=== PATIENT | female | born 1975 | race Two or more races ===

== ENCOUNTER → 2017-08-05 13:34 | Outpatient (CLI) | payer BC, SELFPAY ==
[2017-08-05 15:48] LABS: Absolute Lymphocyte Count 1.61 X10^3/ul (0.83-4.51); Absolute Neutrophil Count 6.6 X10^3/uL (2.0-7.7); Basophil# 0.02 X10^3/uL; Basophil% 0.2 % (0-1); Eosinophil# 0.52 X10^3/uL; Eosinophils% 5.7 % (0-5); Hematocrit 43.9 % (37-47); Hemoglobin 13.9 g/dl (12.0-15.0); Lymphocyte # 1.61 X10^3/ul (4.0); Lymphocyte % 17.5 % (19-41); Mean Corp Hgb Conc 31.7 g/gl (32-36); Mean Corpuscular Hgb 29.6 pg (27.0-32.0); Mean Corpuscular Volume 93.4 fL (81-99); Monocyte# 0.46 X10^3/uL; Neutrophil # 6.55 X10^3/uL (2.7-7.7); Neutrophil % 71.4 % (47-70); Platelet Count 231 K/mm3 (150-450); RBC Distribution Width CV 13.6 % (11.6-14.6); RBC Distribution Width SD 46.8 fl (35.1-43.9); White Blood Count 9.2 K/mm3 (4.4-11.0)
[2017-08-05 15:56] LABS: POSITIVE COUNT NO; POSITIVE DIFFERENTIAL NO; POSITIVE MORPHOLOGY NO
[2017-08-05 16:13] LABS: AST(SGOT) 22 U/L (15-37); Alanine Aminotransfer ALT/SGPT 31 U/L (13-56); Albumin, Serum 3.9 g/dL (3.2-5.0); Alkaline Phosphatase 75 U/L (45-117); Anion Gap 7 (5-15); BUN 12 mg/dL (7-18); BUN/Creat Ratio 17.6 RATIO (10-20); Calcium,Total 9.2 mg/dL (8.5-10.1); Chloride 104 mmol/L (98-107); Creatinine, Serum 0.68 mg/dL (0.55-1.02); EST Glomerular Filtration Rate 102 mL/min (>60); Est Glom Filt Rate - Afr Amer 123 mL/min (>60); Ferritin 161 ng/mL (8-252); Globulin 3.8 g/dL (2.2-4.2); Glucose 86 mg/dL (74-106); Potassium 4.1 mmol/L (3.5-5.1); Protein, Total 7.7 g/dL (6.4-8.2); Sodium Level 141 mmol/L (136-145); Thyroid Stim Hormone (TSH) 0.82 uIU/mL (0.358-3.74)
[2017-08-07 16:11] LABS: Endomysial Antibody IgA Negative (Negative)
[2017-08-08 09:58] LABS: Deamidated Gliadin IgA 2 units (0-19); Deamidated Gliadin IgG 3 units (0-19); Immunoglobulin A 136 mg/dL (87-352); t-Transglutaminase IgA <2 U/mL (0-3)
== END ==
PROVIDERS: Family Provider Family Medicine; PCP Family Medicine; Visit Provider Family Medicine
DX: B94.8 Sequelae of other specified infectious and parasitic diseases (principal); K58.9 Irritable bowel syndrome, unspecified
CPT/HCPCS: 36415; 80053; 82728; 82784; 83516; 84443; 85025; 86255

== ENCOUNTER → 2018-01-30 09:19 | Outpatient (CLI) | payer BC, SELFPAY ==
--- NOTE | 2018-01-30 09:21 | RAD_ITS ---
STUDY: ESOPHAGRAM. REASON FOR EXAM: Female, 42 years old. Dyspepsia. Burning in the throat. Bad taste in mouth. Gas and bloating after eating. 12 pound weight loss in 6 months. RADIATION DOSAGE (If Supplied By Facility): CTDIvol = ( ) mGy, DLP = ( ) mGycm. Individualized dose optimization techniques were used for this CT.? FLUOROSCOPY TIME (if supplied): (0:35) minutes/seconds TECHNIQUE: Effervescing granules and barium meal ingested under fluoroscopic guidance. 3 images were provided for interpretation. COMPARISON: None. FINDINGS: The images of the esophagus demonstrate normal distensibility and caliber. There is no extraluminal projections of barium intraluminal filling defects. There is no mucosal abnormality. The proximal stomach appears grossly normal. RAD/Esophagus Only IMPRESSION: Limited esophagram without gross abnormality. Electronically Signed: Boby Yee DO at 19:38 EDT Tel [phone], Service support ,
== END ==
PROVIDERS: Family Provider Family Medicine; PCP Family Medicine; Visit Provider Family Medicine
DX: R10.13 Epigastric pain (principal)
CPT/HCPCS: 74220

== ENCOUNTER → 2018-03-06 08:35 | Outpatient (CLI) | payer BC, SELFPAY ==
--- NOTE | 2018-03-06 | IMM_PTH ---
PATIENT: VIOLET RODRIGUEZ LOC: [facility] U#:[id number] AGE/SX: 49/F ROOM: RE03/06/[address]: Dr. Bridger Riggins MD : 1975 BED: DIS: SPEC #: [id number] RECD: 03/10/18 10:53 STATUS: SOLOMON REQ #: [id number] DUSTIN: 03/06/18 00:[address]: Bridger Riggins DEPT: IMMUNOHISTOCHEMISTRY RECD BY: Frannie Espinoza ENTERED: 03/10/18 10:53 SP TYPE: IMMUNO OTHR DR: Dr. Antonio Barry MD Tissues: B - Stomach, NOS Procedures: H Pylori (initial) PHYSICIAN & INSTITUTION [place] [address] SPECIMEN INFORMATION: Tissue Source: B - Gastric biopsy Clinical Info: Dyspepsia, burning sensation of mouth, weight loss Specimen Number: [id number] CPT code: 35466 METHODOLOGY: Deparaffinized sections of prefer/formalin-fixed tissue or PAP/DQ stained slides are incubated with monoclonal/polyclonal antibodies/oligonucleotide probes. Localization is made via biotin free immunoperoxidase method. Appropriate controls are performed and reacted as expected. Results on target cell population are indicated in the following table: RESULTS: ANTIBODY / CLONE RESULT Block B H Pylori (polyclonal) negative These tests were developed and their performance characteristics determined by [facility]. They may not have been cleared or approved by the U.[place]. Food and Drug Administration. The FDA has determined that such clearance or approval is not necessary. INTERPRETATION: B. Gastric biopsy: Negative for Helicobacter pylori organisms. SJ:nori 03/11/18
--- NOTE | 2018-03-06 | EGD_PTH ---
PATIENT: VIOLET RODRIGUEZ LOC: [facility] U#:[id number] AGE/SX: 49/F ROOM: RE03/06/[address]: Dr. Bridger Riggins MD : 1975 BED: DIS: SPEC #: [id number] RECD: 03/06/18 15:35 STATUS: SOLOMON VALERIE #: [id number] DUSTIN: 03/06/18 00:[address]: Bridger Riggins DEPT: SURGICAL PATHOLOGY RECD BY: John Montgomery ENTERED: 03/09/18 13:36 SP TYPE: EGD BIOPSY OT DR: Dr. Antonio Barry MD [facility] Tissues: A - Duodenum, NOS B - Gastric mucous membrane Procedures: Surgery Specimen Level IV HEADER OPERATION: EGD with biopsies PRE-OP DIAGNOSIS: Dyspepsia, burning sensation of mouth, weight loss TISSUE SUBMITTED: A - Duodenal biopsies, rule out celiac and Whipple, B - Gastric biopsies, rule out gastritis MICROSCOPIC DIAGNOSIS A. Duodenal biopsy: Fragments of small intestinal mucosa, no pathologic diagnosis. B. Gastric biopsy: Mild gastritis. CRIS:nori 03/10/18 COMMENT B. The results of immunohistochemistry for Helicobacter pylori will be reported separately ([id number]). MICROSCOPIC DESCRIPTION Slides are reviewed. B. The specimen shows fragments of gastric mucosa with chronic inflammatory cell infiltrates in the lamina propria consisting of lymphocytes and plasma cells, consistent with mild chronic gastritis. GROSS DESCRIPTION A - Received in fixative is one container labeled with the patient's name and designated duodenal biopsy. The specimen consists of multiple irregular fragments of light ludwig soft tissue that in aggregate measure 1.5 x 0.2 x 0.1 cm. The specimen is totally submitted in one cassette. B - Received in fixative is one container labeled with the patient's name and designated gastric biopsy. The specimen consists of multiple irregular fragments of light ludwig soft tissue that in aggregate measure 1 x 0.6 x 0.1 cm. The specimen is totally submitted in one cassette. / CRIS:nori 03/09/18 TC:5 CPT: 06665 x2
== END ==
PROVIDERS: Family Provider Family Medicine; PCP Family Medicine; Referring Provider Internal Medicine Gastroenterology; Visit Provider Internal Medicine Gastroenterology
DX: R10.13 Epigastric pain (principal); R63.4 Abnormal weight loss; R19.8 Other specified symptoms and signs involving the digestive system and abdomen
CPT/HCPCS: 88305; 88342

== ENCOUNTER → 2018-05-20 09:59 | Outpatient (CLI) | payer BC, SELFPAY ==
[2018-05-20 12:31] LABS: Absolute Neutrophil Count 3.3 X10^3/uL (2.0-7.7); Basophil# 0.03 X10^3/uL; Basophil% 0.5 % (0-1); Eosinophil# 0.58 X10^3/uL; Eosinophils% 10.4 % (0-5); Hematocrit 42.2 % (37-47); Hemoglobin 13.8 g/dl (12.0-15.0); Lymphocyte % 25.1 % (19-41); Mean Corp Hgb Conc 32.7 g/gl (32-36); Mean Corpuscular Hgb 30.6 pg (27.0-32.0); Mean Corpuscular Volume 93.6 fL (81-99); Mean Platelet Vol. 11.6 fl (6.2-12.0); Monocyte# 0.24 X10^3/uL; Monocyte% 4.3 % (0-10); Neutrophil # 3.32 X10^3/uL (2.7-7.7); Neutrophil % 59.5 % (47-70); Platelet Count 182 K/mm3 (150-450); RBC Distribution Width CV 13.8 % (11.6-14.6); RBC Distribution Width SD 45.7 fl (35.1-43.9); Red Blood Count 4.51 M/mm3 (4.2-5.4); White Blood Count 5.6 K/mm3 (4.4-11.0)
[2018-05-20 12:32] LABS: POSITIVE COUNT NO; POSITIVE DIFFERENTIAL NO; POSITIVE MORPHOLOGY NO
[2018-05-20 12:47] LABS: ALB/GLOB Ratio 1.5 RATIO (0.9-2.4); AST(SGOT) 24 U/L (15-37); Alanine Aminotransfer ALT/SGPT 39 U/L (13-56); Albumin, Serum 4.2 g/dL (3.2-5.0); Alkaline Phosphatase 79 U/L (45-117); Anion Gap 7 (5-15); BUN 15 mg/dL (7-18); BUN/Creat Ratio 23.4 RATIO (10-20); Calcium,Total 8.9 mg/dL (8.5-10.1); Chloride 109 mmol/L (98-107); Creatinine, Serum 0.64 mg/dL (0.55-1.02); EST Glomerular Filtration Rate 108 mL/min (>60); Est Glom Filt Rate - Afr Amer 131 mL/min (>60); Globulin 2.8 g/dL (2.2-4.2); Glucose 66 mg/dL (74-106); Potassium 3.9 mmol/L (3.5-5.1); Prealbumin 21.1 mg/dL (20.0-40.0); Sodium Level 146 mmol/L (136-145); Thyroid Stim Hormone (TSH) 0.82 uIU/mL (0.358-3.74)
[2018-05-27 12:07] LABS: Codfish <0.10 kU/L (Class 0); Egg, White <0.10 kU/L (Class 0); Milk (Cow) <0.10 kU/L (Class 0); Peanut <0.10 kU/L (Class 0); SCALLOP <0.10 kU/L (Class 0); Soybean <0.10 kU/L (Class 0); Walnut, (Food) <0.10 kU/L (Class 0); Wheat <0.10 kU/L (Class 0)
== END ==
PROVIDERS: Family Provider Family Medicine; PCP Family Medicine; Visit Provider Family Medicine
DX: K58.9 Irritable bowel syndrome, unspecified (principal); F41.1 Generalized anxiety disorder; Z91.018 Allergy to other foods
CPT/HCPCS: 36415; 80053; 84134; 84443; 85025; 86003

== ENCOUNTER → 2018-05-28 10:26 | Outpatient (CLI) | payer BC, SELFPAY ==
[2018-05-31 04:06] LABS: Beef <0.10 kU/L (Class 0); Corn <0.10 kU/L (Class 0); Egg, Whole <0.10 kU/L (Class 0); Milk (Cow) <0.10 kU/L (Class 0); Peanut <0.10 kU/L (Class 0); Pork <0.10 kU/L (Class 0); Soybean <0.10 kU/L (Class 0); Wheat <0.10 kU/L (Class 0)
[2018-06-01 09:46] LABS: Chocolate <0.10 kU/L (Class 0)
== END ==
PROVIDERS: Family Provider Family Medicine; PCP Family Medicine; Visit Provider Family Medicine
DX: R63.4 Abnormal weight loss (principal); R19.7 Diarrhea, unspecified
CPT/HCPCS: 36415; 86003; 86005

== ENCOUNTER → 2019-12-20 | Outpatient (CLI) | payer OTHER, SELFPAY ==
[2019-12-23 13:43] LABS: HPV Reflexed? NOT INDICATED
== END | disposition home or self-care (01) ==
LOC: LABSPEC 15:41
PROVIDERS: PCP Family Medicine; Referring Provider Family Medicine; Visit Provider Nurse Practitioner Family
DX: Z01.419 Encounter for gynecological examination (general) (routine) without abnormal findings (principal)
CPT/HCPCS: 88175; G0145

== ENCOUNTER → 2020-01-14 09:44 | Outpatient (CLI) | payer OTHER, SELFPAY ==
--- NOTE | 2020-01-14 09:53 | BI_ITS ---
MAMMOGRAPHY - BILATERAL SCREENING REASON FOR EXAM: Female, 44 years old. Routine annual screening examination. PERTINENT HISTORY: Non-contributory. Remote left excisional breast biopsy. TECHNIQUE: Digital bilateral breast ana (3D mammographic acquisition) in the CC and MLO projections. 2-D mediolateral oblique (MLO) and craniocaudad (CC) views of both breasts were obtained. CAD: Full Field Digital Mammography with Computer Added Detection was performed. COMPARISON: None. Baseline examination. FINDINGS: Breast Composition: The breasts are extremely dense, which lowers the sensitivity of mammography. There are no dominant masses or suspicious calcifications. No other significant abnormalities are identified. BI/SCREEN MAMM (CAD) W/ANA BILAT IMPRESSION: Negative screening mammogram. Yearly followup mammogram recommended. (A) ASSESSMENT CATEGORY: BIRADS Category 1: Negative. A letter regarding these results will be sent to the patient by the facility within 30 days. Approximately 10% of breast cancers are not detected by mammography. A normal mammogram should not delay biopsy of a clinically suspicious abnormality. [id number] Electronically Signed: Devyn South, at 11:12 EDT , Service support ,
== END ==
PROVIDERS: PCP Family Medicine; Referring Provider Nurse Practitioner Family; Visit Provider Nurse Practitioner Family
DX: Z12.31 Encounter for screening mammogram for malignant neoplasm of breast (principal)
CPT/HCPCS: 77063; 77067

== ENCOUNTER → 2020-02-04 15:09 | Outpatient (CLI) | payer OTHER, SELFPAY ==
--- NOTE | 2020-02-04 15:12 | RAD_ITS ---
STUDY: X-RAY CHEST REASON FOR EXAM: Female, 44 years old. Acute bronchitis TECHNIQUE: PA and lateral views of the chest. COMPARISON: None. FINDINGS: Pectus excavatum deformity. Hyperinflation. Patchy infiltrate in the posterior segment of the right lower lobe. There is no demonstrated pleural abnormality. Normal size heart. Normal mediastinum and rodolfo. Normal visualized pulmonary arteries. Normal visualized aortic arch and descending thoracic aorta. Normal visualized thoracic spine. Normal visualized ribs, clavicles, and shoulders. There is no demonstrated abnormality of the visualized soft tissue structures of the upper abdomen. RAD/Chest PA and Lateral IMPRESSION: Patchy infiltrate is seen in the posterior medial segment of the right lower lobe. Electronically Signed: Devyn South, at 15:32 EDT , Service support ,
== END ==
PROVIDERS: PCP Family Medicine; Referring Provider Family Medicine; Visit Provider Family Medicine
DX: J20.9 Acute bronchitis, unspecified (principal)
CPT/HCPCS: 71046; 87635; U0003

== ENCOUNTER → 2020-05-18 13:29 | Outpatient (CLI) | payer OTHER, SELFPAY | PROVIDERS: PCP Family Medicine; Visit Provider Family Medicine | DX: N89.8 Other specified noninflammatory disorders of vagina (principal) | CPT/HCPCS: 87070; 87205; 87210 ==

== ENCOUNTER 2021-06-01 12:27 | Outpatient (CLI) | payer OTHER, SELFPAY ==
[2021-06-01 15:53] LABS: Cholesterol 122 mg/dL (200); Creatinine, Serum 0.66 mg/dL (0.55-1.02); EST Glomerular Filtration Rate 104 mL/min (>60); Est Glom Filt Rate - Afr Amer 126 mL/min (>60); High Density Lipoprotein 57 mg/dL; Thyroid Stim Hormone (TSH) 0.74 uIU/mL (0.358-3.74); Triglycerides 99 mg/dL; Very Low Density Lipoprotein 20 mg/dL (5-40)
== END 2021-06-01 23:59 | disposition short-term general hospital (02) ==
LOC: MFPLAB 12:30
PROVIDERS: PCP Family Medicine; Referring Provider Family Medicine; Visit Provider Family Medicine
DX: Z00.00 Encounter for general adult medical examination without abnormal findings (principal)
CPT/HCPCS: 36415; 80061; 82565; 84443

== ENCOUNTER → 2022-05-31 | Outpatient (CLI) | payer OTHER, SELFPAY ==
[2022-05-31 15:16] LABS: Absolute Lymphocyte Count 0.87 X10^3/uL (0.83-4.51); Absolute Neutrophil Count 4.9 X10^3/uL (2.0-7.7); Basophil# 0.03 X10^3/uL; Basophil% 0.5 % (0-1); Eosinophil# 0.14 X10^3/uL; Eosinophils% 2.3 % (0-5); Hemoglobin 13.7 g/dL (12.0-15.0); Lymphocyte # 0.87 X10^3/ul (0.83-4.51); Lymphocyte % 14.2 % (19-41); Mean Corp Hgb Conc 31.1 g/dL (32-36); Mean Corpuscular Hgb 29.5 pg (27.0-32.0); Mean Corpuscular Volume 94.8 fL (81-99); Mean Platelet Vol. 12.1 fl (6.2-12.0); Monocyte% 3.3 % (0-10); NRBC Flagged by Analyzer 0 % (0-5); Neutrophil # 4.86 X10^3/uL (2.7-7.7); Neutrophil % 79.2 % (47-70); Platelet Count 212 K/mm3 (150-450); RBC Distribution Width CV 13.2 % (11.6-14.6); RBC Distribution Width SD 46.5 fl (35.1-43.9); Red Blood Count 4.64 M/mm3 (4.2-5.4); White Blood Count 6.1 K/mm3 (4.4-11.0)
[2022-05-31 15:48] LABS: ALB/GLOB Ratio 1.5 RATIO (0.9-2.4); AST(SGOT) 24 U/L (15-37); Alanine Aminotransfer ALT/SGPT 33 U/L (13-56); Albumin, Serum 4.5 g/dL (3.2-5.0); Alkaline Phosphatase 73 U/L (45-117); Anion Gap 8 (5-15); BUN 15 mg/dL (7-18); BUN/Creat Ratio 23.6 RATIO (10-20); CRP < 2.90 mg/L (0.0-3.0); Calcium,Total 9.4 mg/dL (8.5-10.1); Chloride 106 mmol/L (98-107); Cholesterol 113 mg/dL (200); Creatinine, Serum 0.64 mg/dL (0.55-1.02); EST Glomerular Filtration Rate 107 mL/min (>60); Est Glom Filt Rate - Afr Amer 130 mL/min (>60); Globulin 3.1 g/dL (2.2-4.2); Glucose 88 mg/dL (74-106); High Density Lipoprotein 63 mg/dL; Potassium 3.9 mmol/L (3.5-5.1); Protein, Total 7.6 g/dL (6.4-8.2); Sodium Level 142 mmol/L (136-145); Thyroid Stim Hormone (TSH) 0.42 uIU/mL (0.358-3.74); Triglycerides 69 mg/dL; Very Low Density Lipoprotein 14 mg/dL (5-40)
[2022-06-03 21:30] LABS: ANTINUCLEAR ANTIBODIES DIRECT Negative (Negative)
== END | disposition home or self-care (01) ==
LOC: MTLAB 12:43
PROVIDERS: PCP Family Medicine; Referring Provider Family Medicine; Visit Provider Family Medicine
DX: Z00.00 Encounter for general adult medical examination without abnormal findings (principal); M25.511 Pain in right shoulder; K58.9 Irritable bowel syndrome, unspecified; R13.10 Dysphagia, unspecified; R47.9 Unspecified speech disturbances
CPT/HCPCS: 36415; 80053; 80061; 84443; 85025; 86038; 86140; 86225; 86235

== ENCOUNTER → 2022-06-12 | Outpatient (CLI) | payer OTHER, SELFPAY ==
--- NOTE | 2022-06-12 13:24 | BI_ITS ---
MAMMOGRAPHY - BILATERAL SCREENING REASON FOR EXAM: Female, 47 years old. Routine annual screening examination. PERTINENT HISTORY: Non-contributory. History of remote left excisional breast biopsy. TECHNIQUE: Digital bilateral breast ana (3D mammographic acquisition) in the CC and MLO projections. 2-D mediolateral oblique (MLO) and craniocaudad (CC) views of both breasts were obtained. CAD: Full Field Digital Mammography with Computer Added Detection was performed. COMPARISON: Comparison is made with prior examination dated 01/14/2020. FINDINGS: Breast Composition: The breasts are extremely dense, which lowers the sensitivity of mammography. There are no dominant masses or suspicious calcifications. No other significant abnormalities are identified. There has been no significant change since the prior study. BI/SCRN MAMM (CAD)W/ANA BILAT IMPRESSION: Stable bilateral screening mammogram. Yearly follow-up mammogram recommended. (A) ASSESSMENT CATEGORY: BIRADS Category 1: Negative. A letter regarding these results will be sent to the patient by the facility within 30 days. Approximately 10% of breast cancers are not detected by mammography. A normal mammogram should not delay biopsy of a clinically suspicious abnormality. [id number] Electronically Signed: Devyn South MD at 9:42 EST ,
== END | disposition home or self-care (01) ==
LOC: OPBI 13:22
PROVIDERS: PCP Family Medicine; Referring Provider Family Medicine; Visit Provider Family Medicine
DX: Z12.31 Encounter for screening mammogram for malignant neoplasm of breast (principal)
CPT/HCPCS: 77063; 77067

== ENCOUNTER 2022-06-17 13:30 | Outpatient (RCR) | payer OTHER, SELFPAY ==
--- NOTE | 2022-06-10 10:22 | HP.PTEVAL_ITS ---
Patient's Visit Information VIOLET RODRIGUEZ is a 47 year old F referred to Physical Therapy by Antonio Barry MD with a diagnosis of Right Shoulder Pain. Date of Evaluation: 06/10/22 Physical Therapist: Adela Henry DPT - Visit Plan Frequency: 2x /Week Duration: 4 Weeks Plan: Focus on scapular strength/stabilization. 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 The pain is located in the deltoid- and only when she does certain things. Not painful all the time. She does have some days that its just achy all the time but not very often. Triggered by reaching behind, IR, and reaching overhead. Worst: 5/10 describes it as sharp. Does not radiate. She doesn't feel like she can touch the pain. No N/T in the fingers. She use to work on the computer a lot and had a lot of pain in the right arm- but she has not done that in a long time- thought it might be associated but thinks that this maybe different. No neck pain, blurred vision, dizziness, OMER- nothing new. No issues with finger dexterity or department clinician strength. She has not had MRI or x-rays of the shoulder. MD suspected some sort of tendon issues. No medication or injection. 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 She has a lot of her hypermobility. She can't do child's pose anymore with pressure and extension. She does not feel that its getting better or worse. She reports that she is normally pretty active- she is on her feet all day with her job and getting the gym 1x a week- active with chores and daughter. Sleep: can't sleep on the right shoulder- if she rolls over onto its uncomfortable and can't fall asleep on that side. Right hand dominate. [place] got a job offer out of state and plans to move in Jun. PMHx: none Meds: mirtazapine. - Objective Posture: FH, RS- can correct with verbal cues but does not maintain Palpation: not tender to touch. ROM: Elbow/Wrist/hand: WFL, Shoulder: Flexion: full with pain after 160 degrees, Abd: full with pain after 150 degrees, IR: to bra line with pain, ER: 50 degrees with pain- pt is hypermobile bilateral. Strength: At neutral: 4+/5 without pain. In mid range: 4/5 with discomfort in IR/ER, abd and flexion. Scap: fair minus- moderate winging bilateral . - Special Tests R Shoulder Empty Can - SS: Positive R Shoulder Belly Press - SupScap: Positive R Shoulder Neer - Impingement: Positive R Shoulder Fuentes Socrates - Impingement: Positive - Balance/Special Test Scores Quick DASH Score: 13.6350 - Goals Goal 1:: Patient will be I with HEP and progression Goal Time Frame: 4-6 Weeks Goal 2:: Patient will maintain proper posture t/o tx session to demo increased scap s/s Goal Time Frame: 4-6 Weeks Goal 3:: Patient will report no pain for 1 week Goal Time Frame: 4-6 Weeks - Rehabilitation Potential Physical Therapy Diagnosis: Patient presents with hypermobility- she has decreased scapular strength/stabilization and muscular endurance leading to rounded shoulders and increased pain with ADL's. Rehabilitation Potential: Good - Anticipated Interventions Patient/Client Instruction: Educate patient on: Benefits of Fitness Program Therapeutic Exercise to Include: Strength training, Endurance training, Coordination, Agility training, Body mechanics, Postural training, Neuromotor development, Dynamic Lumbar Stabilization, Scapular Strength/Stabilization For the Purpose of:: To improve muscle performance and motor function TENS: Yes Cryotherapy (ice pack, ice massage): Yes Thermo therapy (hot pack): Yes Ultrasound (thermal/non thermal): Yes Thank you for the opportunity to evaluate your patient. For Medicare and Medicare HMO plans, please review the plan of care and approve it. It will need to be FAXED BACK to us at [phone] for Medicare purposes. For Medicare only, by signing this I certify the plan of care. Please let me know if there are questions or concerns regarding this plan of care. Physician Signature: Date:
--- NOTE | 2022-07-01 10:52 | HP.PTDCSUM_ITS ---
It has been my pleasure to treat VIOLET RODRIGUEZ referred by Antonio Barry MD, with the diagnosis of Right Shoulder Pain for a total of 3 visit(s). Discharge Date: Please see the following information for a summary of their discharge status. Subjective: Patient is crying at beginning of treatment- she is really frustrated and has a lot of stress in her life. She is moving July 17 for a new job. They did alot of traveling over the weekend. She feels that she is having the more pain with movement, she doesn't feel less functional just painful. She reports that she is now having OMER that are normally just hormonal more often. She had pain in the arm so she rubbed it for a long time and is now having N/T in her hand that isn't going away. RUE Pain Intensity (Out of 10): 1 Objective/Function: Held Tband strengthening d/t pt having negative response to strengthening at this time. Attempted isometrics but pt deferred out of fear that symptoms would worsen w/any type of strengthening right now. Checked pt's ROM and this was painful and could not assess this d/t pt putting her arm down. Pt deferred MH or CP in fear that it would make her feel worse. D/C'd rx today until supervising PT can reassess pt's symptoms. 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 Goal 1:: Patient will be I with HEP and progression Goal 2:: Patient will maintain proper posture t/o tx session to demo increased scap s/s Goal 3:: Patient will report no pain for 1 week Plan: 07/01/22- at this time patient is appropriate to return to MD for further evaluation If there are questions or concerns regarding this patient's physical therapy, please feel free to call me at [phone]. Thank you for the referral of this patient. Sincerely, Adela Henry, DPT Balance/Gait/Functional tests - Balance/Special Test Scores Quick DASH Score: 13.6350
== END 2022-06-17 19:00 | disposition home or self-care (01) ==
LOC: PT 13:30
PROVIDERS: PCP Family Medicine; Referring Provider Family Medicine; Visit Provider Family Medicine
DX: M25.511 Pain in right shoulder (principal)
CPT/HCPCS: 97110; 97162; 97530

== ENCOUNTER → 2022-07-08 | Outpatient (CLI) | payer OTHER, SELFPAY ==
--- NOTE | 2022-07-08 09:06 | RAD_ITS ---
STUDY: X-RAY - ESOPHAGUS (BARIUM SWALLOW) WITH FLUOROSCOPY REASON FOR EXAM: Female, 47 years old. DYSPHAGIa TECHNIQUE: 16 view(s) of the esophagus were obtained following swallowing of barium. FLUOROSCOPY TIME (if supplied): (22 seconds) minutes/seconds COMPARISON: None. FINDINGS: There is no demonstrated esophageal foreign body. There is no demonstrated stricture or mucosal abnormality. Normal gastroesophageal junction, without a demonstrated hiatal hernia. The patient ingested a 12 mm tablet of barium without any difficulty. Normal visualized aortic arch and descending thoracic aorta. Normal visualized pulmonary parenchyma. Normal visualized osseous structures of the thorax. RAD/Esophagus Single Contrast IMPRESSION: Normal plain film x-ray examination (barium swallow) of the esophagus. Electronically Signed: Devyn South MD at 15:22 EST ,
== END | disposition home or self-care (01) ==
PROVIDERS: PCP Family Medicine; Referring Provider Internal Medicine Gastroenterology; Visit Provider Internal Medicine Gastroenterology
DX: R13.10 Dysphagia, unspecified (principal)
CPT/HCPCS: 74220

== ENCOUNTER → 2022-07-09 | Outpatient (CLI) | payer OTHER, SELFPAY ==
--- NOTE | 2022-07-09 10:05 | RAD_ITS ---
INDICATION: pain, weakness EXAMINATION/TECHNIQUE: X-RAY - RIGHT XR Shoulder Min 2 Views 4 VIEWS COMPARISON: None. FINDINGS: SOFT TISSUES: No soft tissue swelling or gas. No radiopaque foreign body. BONES/JOINTS: No acute fracture or subluxation.. Normal alignment. Preservation of the joint space.. No sclerotic or destructive changes observed. RAD/Shoulder min 2 Views IMPRESSION: Negative. Electronically Signed: Ann Moreno MD at 23:57 EST Reading Location ID and State: [id number] / Tel , Service support ,
== END | disposition home or self-care (01) ==
LOC: MTRAD 10:00
PROVIDERS: PCP Family Medicine; Referring Provider Nurse Practitioner Family; Visit Provider Nurse Practitioner Family
DX: M25.511 Pain in right shoulder (principal)
CPT/HCPCS: 73030